=== PATIENT | male | born 1940 | race Caucasian/White ===

== ENCOUNTER 2019-11-08 07:41 | Day surgery (SDC) | payer MEDICARE, OTHER ==
[2019-11-04 10:17] VITALS: BMI 32.3
[~2019-11-08 07:41] MED LIST: DEXAMETHASONE SOD PHOSPHATE 10 MG/ML 1 ML VIAL IV ONE; DEXAMETHASONE SOD PHOSPHATE 4 MG/ML 1 ML VIAL IV ONE; FAMOTIDINE 20 MG/2 ML VIAL IV ONE; HYDROmorphone 0.5 MG/0.5 ML SYRINGE IVP PRN; LACTATED RINGERS 1,000 ML IV SCH; LIDOCAINE 1% 20 ML VIAL (10MG/ML) FOR IV START INTRADERMA PRN; ONDANSETRON 4 MG/2 ML VIAL IVP ONE
[2019-11-08 08:54] LABS: Glucose,Whole Blood 169 mg/dL (75-99)
[2019-11-08] MEDS ORDERED: ONDANSETRON 4 MG/2 ML VIAL IVP ONE (09:03)
[2019-11-08] MEDS ORDERED: DEXAMETHASONE SOD PHOSPHATE 10 MG/ML 1 ML VIAL IV ONE (09:04)
[2019-11-08] MEDS ORDERED: ROCURONIUM BROMIDE 10 MG/ML 10 ML VIAL IV ONE (10:20)
[2019-11-08] MEDS ORDERED: SUCCINYLCHOLINE CHLORIDE 100 MG/5 ML SYR IV ONE (10:20)
[2019-11-08] MEDS ORDERED: LIDOCAINE 1% INJ 10MG/ML (20 ML MDV) ONE (10:20)
[2019-11-08] MEDS ORDERED: MIDAZOLAM 2 MG/2 ML VIAL ONE (10:20)
[2019-11-08] MEDS ORDERED: ePHEDrine SULFATE/0.9% NACL/PF 50 MG/5 ML SYRINGE IV ONE (10:20)
[2019-11-08] MEDS ORDERED: PROPOFOL 10 MG/ML 20 ML VIAL IV ONE (10:20)
[2019-11-08] MEDS ORDERED: fentaNYL (PF) 50 MCG/ML 2 ML AMP ONE (10:20)
[2019-11-08] MEDS ORDERED: LIDOCAINE 1%-EPI 1:100,000 20 ML VIAL SQ ONE ×3 (10:43)
[2019-11-08] MEDS ORDERED: BACITRACIN 500 UNIT/GM OINT 28.4 GM TUBE TOPICAL ONE (11:03)
[2019-11-08] MEDS ORDERED: LACTATED RINGERS 1,000 ML IV ONE (11:49)
--- NOTE | 2019-11-08 11:54 | P.OP ---
Date of Procedure: 11/08/19 Preoperative Diagnosis: Right ear lesion Right nasal alar skin lesion Left holiness skin lesion 2 Postoperative Diagnosis: Same Procedure(s) Performed: Wedge excision right ear lesion with complex closure 6.3 cm Excision right nasal alar skin lesion 1.4 cm x 1.4 cm Full-thickness skin graft reconstruction right nasal alar skin defect 1.4 x 1.4 cm Excision left holiness skin lesion 2.6 cm x 1.3 cm with layered closure Excision left holiness skin lesion 2.1 cm x 1.2 cm with layered closure Anesthesia: ELIZAA Surgeon: Shreyas Vang Estimated Blood Loss (ml): 5 Pathology: other (Right ear skin lesion, right nasal alar skin lesion, left temporal skin lesion 2) Condition: stable Disposition: PACU Indications for Procedure: This is 79-year-old white male with multiple skin lesions that have developed. He has history of cutaneous malignancies previously Operative Findings: Right posterior auricle skin lesion, right nasal alar skin lesion and two left holiness skin lesions- these are all suspicious for cutaneous malignancies-raised erythematous and irregular Description of Procedure: Patient brought in the operative suite and placed in a supine position. The patient underwent induction of general anesthesia with oral endotracheal intubation without difficulty. The patient was prepped and draped in usual aseptic fashion. 1% lidocaine with 1-1000 epinephrine was infused subcutaneously at all sites as well as the right supraclavicular area for full- thickness skin graft harvest. The right nasal alar skin lesion was excised grossly entirely down to the perichondrium and hemostasis was gained with electrocautery. The full-thickness skin graft was then harvested in elliptical fashion from the right supraclavicular area in elliptical fashion defatted. This was then sutured circumferentially to suture the graft with 5-0 Vicryl suture left long and were then tied down to bolster dressing. Bolster dressing was cottonball impregnated with bacitracin ointment covered by Adaptic. The graft donor site was then undermined widely and hemostasis was gained with electrocautery. Wound was closed with inverted interrupted 4-0 Vicryl suture in the subcutaneous layer and cutaneous layers closed with running locking 4-0 Prolene suture. Bacitracin ointment sterile dressing were placed. The right ear lesion was then excised grossly entirely utilizing a wedge excision technique and hemostasis was gained with electrocautery. Complex closure was then accomplished utilizing rotation of the cut edges including the cartilage into the defect and utilizing 4-0 Vicryl suture and the cartilage 5-0 Vicryl in the subcutaneous layers and running locking 5-0 Prolene suture in the subcutaneous layer. Bacitracin ointment and a sterile dressing were placed. The left holiness lesions were then excised and closed separately but in the same fashion in elliptical fashion down to the subcutaneous fat layer grossly entirely and the edges of the wound are undermined hemostasis gained electrocautery and the wounds closed in layered closure technique with inverted interrupted 5-0 Vicryl suture and subcutaneous layer and cutaneous layer was closed with running locking 5-0 Prolene suture and bacitracin ointment and sterile dressings were placed. The patient was then allowed to emerge from general anesthesia having tolerated procedure well was extended the operating suite and transferred postoperative recovery area in size condition. Frozen section was due to the size of the lesions suture. Will await final pathology.
[2019-11-08 12:01] VITALS: TEMP 97
[2019-11-08 14:48] VITALS: BP 156/71; PULSE 63; RESP 18
== END 2019-11-08 14:34 | disposition home or self-care (01) ==
LOC: OR 07:41
PROVIDERS: ATTEND Otolaryngology
DX: C44.212 Basal cell carcinoma of skin of right ear and external auricular canal (principal); C44.311 Basal cell carcinoma of skin of nose; C44.319 Basal cell carcinoma of skin of other parts of face; I10 Essential (primary) hypertension; E11.65 Type 2 diabetes mellitus with hyperglycemia; M19.90 Unspecified osteoarthritis, unspecified site; J40 Bronchitis, not specified as acute or chronic; K21.9 Gastro-esophageal reflux disease without esophagitis; Z95.0 Presence of cardiac pacemaker; Z79.84 Long term (current) use of oral hypoglycemic drugs; Z79.899 Other long term (current) drug therapy; Z90.49 Acquired absence of other specified parts of digestive tract; Z98.1 Arthrodesis status; Z88.2 Allergy status to sulfonamides; Z91.018 Allergy to other foods; Z91.048 Other nonmedicinal substance allergy status; Z80.0 Family history of malignant neoplasm of digestive organs; Z82.49 Family history of ischemic heart disease and other diseases of the circulatory system; Z82.61 Family history of arthritis; Z80.42 Family history of malignant neoplasm of prostate; Z83.518 Family history of other specified eye disorder; Z87.891 Personal history of nicotine dependence
CPT/HCPCS: 88305; 11642; 15260; 11643; 12052; 11646; 13152; J2250; J1100; J2405; J0690; J2001; J3010; J0330; J2704

== ENCOUNTER 2020-08-02 09:00 | Day surgery (SDC) | payer MEDICARE, OTHER ==
[~2020-08-02 09:00] MED LIST changes: -DEXAMETHASONE SOD PHOSPHATE 10 MG/ML 1 ML VIAL IV ONE; -DEXAMETHASONE SOD PHOSPHATE 4 MG/ML 1 ML VIAL IV ONE; -FAMOTIDINE 20 MG/2 ML VIAL IV ONE; -LIDOCAINE 1% 20 ML VIAL (10MG/ML) FOR IV START INTRADERMA PRN; -ONDANSETRON 4 MG/2 ML VIAL IVP ONE; +ONDANSETRON 4 MG/2 ML VIAL IVP PRN; +fentaNYL (PF) 50 MCG/ML 2 ML AMP IV PRN
[2020-08-02] MEDS ORDERED: ONDANSETRON 4 MG/2 ML VIAL ONE (09:33)
[2020-08-02 09:52] VITALS: PULSE 60
[2020-08-02 09:52] LABS: Glucose,Whole Blood 152 mg/dL (75-99)
[2020-08-02] MEDS ORDERED: LIDOCAINE 1% (10MG/ML) FOR IV START INTRADERMA ONE (09:52)
[2020-08-02] MEDS ORDERED: PROPOFOL 10 MG/ML 20 ML VIAL IV ONE (11:35)
[2020-08-02] MEDS ORDERED: MIDAZOLAM 2 MG/2 ML VIAL ONE (11:35)
[2020-08-02] MEDS ORDERED: SUCCINYLCHOLINE CHLORIDE 100 MG/5 ML SYR IV ONE (11:35)
[2020-08-02] MEDS ORDERED: fentaNYL (PF) 50 MCG/ML 2 ML AMP ONE (11:35)
[2020-08-02] MEDS ORDERED: LIDOCAINE 1% INJ 10MG/ML (20 ML MDV) ONE (11:35)
[2020-08-02] MEDS ORDERED: LIDOCAINE 1%-EPI 1:100,000 20 ML VIAL SQ ONE ×2 (11:50)
[2020-08-02] MEDS ORDERED: LACTATED RINGERS 1,000 ML IV ONE (11:59)
[2020-08-02] MEDS ORDERED: BACITRACIN ZINC 500 UNIT/GM OINT 28.4 GM TUBE TOPICAL ONE (12:05)
--- NOTE | 2020-08-02 13:10 | P.PCN ---
Date of Procedure: 08/02/20 Preoperative Diagnosis: Left ear skin lesion Left medial brow skin lesion Right forearm skin lesion superior Right forearm skin lesion inferior Postoperative Diagnosis: Same Procedure(s) Performed: Excision ear lesion left 2.1 x 1.8 cm Reconstruction of left ear defect 2.1 x 1.8 cm with full-thickness skin graft Excision left medial brow lesion 1.8 cm with layered closure Excision right forearm skin lesion 1.5 cm with layered closure Excision right forearm skin lesion 1.7 cm with layered closure Anesthesia: ELIZAA Surgeon: Shreyas Vang Estimated Blood Loss (ml): 3 Pathology: other (Left ear, left medial brow, right forearm 2 skin lesions) Condition: stable Disposition: PACU Indications for Procedure: This is a 79-year-old white male with 4 separate slowly enlarging skin lesion enlarging on the left ear. Operative Findings: Pearly appearing skin lesion posterior anton bowl, keratotic irregular white skin lesion left medial brow, roughened and keratotic lesions right forearm 2 Description of Procedure: Patient was brought in the operative suite and placed in a supine position. Patient underwent induction of general anesthesia with oral endotracheal intubation without difficulty. The patient was prepped and draped in usual aseptic fashion. 1% lidocaine with 1 [id number] epinephrine was infused at all 4 separate lesions. The left ear lesion was excised from the surrounding tissue grossly entirely including the underlying cartilage for the margin. Hemostasis gained with electrocautery. A full-thickness skin graft was then harvested from the left supraclavicular area in elliptical fashion and was defatted. The defect was closed after wide undermining and good hemostasis was noted with inverted interrupted 4-0 Vicryl suture and skin closed with running locking 4-0 Prolene suture. Bacitracin ointment sterile dressing were placed. The skin graft was then placed to fill the defect at the appropriate size and shape and was sutured circumferentially with simple interrupted 5-0 Vicryl sutures left l alton. This was tied over a bolster of Adaptic covering cotton impregnated with bacitracin ointment. The left medial brow lesion was then excised in elliptical fashion in the direction of the rectus skin tension lines and the subcutaneous fat layer. Edges of the wound undermined hemostasis gained with electrocautery and the wound was closed with subcutaneous layer with inverted interrupted 5-0 chromic suture skin closed with running locking 5-0 Prolene suture. Bacitracin ointment and sterile dressings were placed. The right forearm skin lesions were then excised individually with elliptical excisions undermining of the skin and hemostasis gained with electrocautery. The wounds there were then closed with inverted interrupted 5-0 chromic suture skin closed with running locking 5-0 Prolene suture. Bacitracin ointment sterile dressings were placed. Each of these lesions were excised and closed separately prior to proceeding with the next. Patient was then allowed to emerge from general anesthesia having tolerated procedure well was extubated in the operating suite and transferred to postop recovery area in satisfactory condition.
[2020-08-02 13:25] VITALS: TEMP 97.5
[2020-08-02 13:31] LABS: Glucose,Whole Blood 184 mg/dL (75-99)
[2020-08-02 14:05] VITALS: RESP 16
[2020-08-02 14:37] VITALS: BP 136/74
[2020-08-02] MEDS ORDERED: HYDROcodone/APAP 5-325MG 1 EACH TAB ONE (14:41)
[2020-08-02] MEDS ORDERED: HYDROcodone/APAP 5-325MG 1 EACH TAB PO ONE (14:42)
== END 2020-08-02 16:23 | disposition home or self-care (01) ==
LOC: OR 09:00
PROVIDERS: ATTEND Otolaryngology
DX: C44.319 Basal cell carcinoma of skin of other parts of face (principal); C44.219 Basal cell carcinoma of skin of left ear and external auricular canal; L57.0 Actinic keratosis; B07.9 Viral wart, unspecified; E78.5 Hyperlipidemia, unspecified; I10 Essential (primary) hypertension; M19.90 Unspecified osteoarthritis, unspecified site; E11.65 Type 2 diabetes mellitus with hyperglycemia; K21.9 Gastro-esophageal reflux disease without esophagitis; Z88.2 Allergy status to sulfonamides; Z79.82 Long term (current) use of aspirin; Z79.4 Long term (current) use of insulin; Z79.52 Long term (current) use of systemic steroids; Z79.02 Long term (current) use of antithrombotics/antiplatelets; Z79.899 Other long term (current) drug therapy; Z90.49 Acquired absence of other specified parts of digestive tract; Z98.41 Cataract extraction status, right eye; Z98.42 Cataract extraction status, left eye; Z95.0 Presence of cardiac pacemaker; Z91.09 Other allergy status, other than to drugs and biological substances; Z80.0 Family history of malignant neoplasm of digestive organs; Z80.42 Family history of malignant neoplasm of prostate; Z82.61 Family history of arthritis; Z82.49 Family history of ischemic heart disease and other diseases of the circulatory system; Z83.518 Family history of other specified eye disorder; Z87.891 Personal history of nicotine dependence
CPT/HCPCS: 88305; 11402 ×2; 11642; 12051; 11643; 15260; 12032; J2250; J2405; J0690; J2001; J3010; J0330; J2704

== ENCOUNTER 2023-07-30 10:23 | Day surgery (SDC) | payer MEDICARE, OTHER ==
[2023-07-28 10:26] VITALS: BMI 28.9
[~2023-07-30 10:23] MED LIST changes: +DEXAMETHASONE SOD PHOSPHATE 4 MG/ML 1 ML VIAL IV ONE; +FAMOTIDINE 20 MG/2 ML VIAL IV PRN; +LIDOCAINE 1% (10MG/ML) FOR IV START INTRADERMA PRN; +MIDAZOLAM 2 MG/2 ML VIAL IV PRN; +ONDANSETRON 4 MG/2 ML VIAL IVP ONE; -ONDANSETRON 4 MG/2 ML VIAL IVP PRN; -fentaNYL (PF) 50 MCG/ML 2 ML AMP IV PRN
[2023-07-30] MEDS ORDERED: fentaNYL (PF) 50 MCG/ML 2 ML AMP ONE (11:07)
[2023-07-30] MEDS ORDERED: PROPOFOL 10 MG/ML 20 ML VIAL IV ONE (11:07)
[2023-07-30] MEDS ORDERED: ePHEDrine 50 MG/ML 1 ML VIAL ONE (11:07)
[2023-07-30] MEDS ORDERED: LIDOCAINE 1% INJ 10MG/ML (20 ML MDV) ONE (11:07)
[2023-07-30 11:17] LABS: Glucose,Whole Blood 156 mg/dL (70-110)
[2023-07-30] MEDS ORDERED: LIDOCAINE 1%-EPI 1:100,000 50 ML VIAL SQ ONE ×2 (11:26)
[2023-07-30] MEDS ORDERED: BACITRACIN ZINC 500 UNIT/GM OINT 28.4 GM TUBE TOPICAL ONE (11:47)
--- NOTE | 2023-07-30 12:04 | P.OP ---
Date of Procedure: 07/30/23 Preoperative Diagnosis: Right ear skin lesion Postoperative Diagnosis: Same Procedure(s) Performed: Wedge excision right ear lesion with complex closure- 5.3 cm Anesthesia: ELIZAA Surgeon: Shreyas Vang Estimated Blood Loss (ml): 3 Pathology: other (Right ear skin lesion) Condition: stable Disposition: PACU Indications for Procedure: This 82-year-old white male with a nonhealing slowly enlarging right ear lesion Operative Findings: Nodular but excoriated right lateral ear lesion approximate 12 x 13 mm Description of Procedure: Patient was brought in the operative suite and placed in a supine position. Patient underwent induction of general anesthesia with oral endotracheal intubation without difficulty. This was an LMA. The patient was prepped and draped in usual aseptic fashion. 1% lidocaine with 1-1000 epinephrine was infused subcutaneously and field block fashion. This was left to work for 7 minutes vasoconstrictive effect. The lesion was then excised with wedge excision technique through and through to remove the lesion grossly entirely. This was marked for permanent section. Frozen sections were deferred due to trying to decrease the time on table with his age and medical status. Hemostasis was gained with electrocautery. The wound was then closed with rotational and advancement of tissue into the area with wide undermining. This required complex closure as the cartilage was reapproximated with oral Vicryl suture subcutaneous deep and superficial layers were closed with inverted interrupted 5-0 Vicryl suture and skin closed with running locking and simple interrupted oral point suture. The wound was dressed with bacitracin ointment and sterile dressing. The patient was allowed to emerge from general anesthesia having tolerated procedure well was extubated in the operating suite and transferred postoperative recovery area in satisfactory condition.
[2023-07-30 12:26] VITALS: PULSE 60; RESP 16; TEMP 97
[2023-07-30 12:48] VITALS: BP 148/67
== END 2023-07-30 13:43 | disposition home or self-care (01) ==
LOC: OR 10:23
PROVIDERS: ATTEND Otolaryngology
DX: C44.212 Basal cell carcinoma of skin of right ear and external auricular canal (principal); E78.5 Hyperlipidemia, unspecified; I12.9 Hypertensive chronic kidney disease with stage 1 through stage 4 chronic kidney disease, or unspecified chronic kidney disease; E11.22 Type 2 diabetes mellitus with diabetic chronic kidney disease; N18.9 Chronic kidney disease, unspecified; K21.9 Gastro-esophageal reflux disease without esophagitis; Z87.891 Personal history of nicotine dependence; Z95.0 Presence of cardiac pacemaker; Z95.5 Presence of coronary angioplasty implant and graft; Z85.46 Personal history of malignant neoplasm of prostate; Z79.82 Long term (current) use of aspirin; Z79.899 Other long term (current) drug therapy
CPT/HCPCS: 88305; 69110; J0690; J2001; J3010; J2704

== ENCOUNTER 2024-04-14 11:43 | Day surgery (SDC) | payer MEDICARE, OTHER ==
[~2024-04-14 11:43] MED LIST changes: -DEXAMETHASONE SOD PHOSPHATE 4 MG/ML 1 ML VIAL IV ONE; -LACTATED RINGERS 1,000 ML IV SCH; -LIDOCAINE 1% (10MG/ML) FOR IV START INTRADERMA PRN; -MIDAZOLAM 2 MG/2 ML VIAL IV PRN; -ONDANSETRON 4 MG/2 ML VIAL IVP ONE
[2024-04-14 12:23] LABS: Glucose,Whole Blood 142 mg/dL (70-110)
[2024-04-14] MEDS: ONDANSETRON 4 MG/2 ML VIAL IVP STA (12:32)
[2024-04-14] MEDS: LACTATED RINGERS 1,000 ML IV SCH (12:32)
[2024-04-14] MEDS: DEXAMETHASONE SOD PHOSPHATE 4 MG/ML 1 ML VIAL IVP STA (12:33)
[2024-04-14] MEDS: IV FLUID CONTINUATION 1,000 ML IV ONE (12:34)
[2024-04-14 12:51] LABS: Basophils # (A) 0.1 k/uL (0-0.2); Basophils % (A) 1 %; Eosinophils # (A) 0.3 k/uL (0-0.7); Eosinophils % (A) 2 %; HCT 39.5 % (39.0-53.0); Lymphocytes # (A) 1.1 k/uL (1.0-4.8); Lymphocytes % (A) 10 %; MCH 29.7 pg (25.0-35.0); MCV 90.2 fL (80.0-100.0); Mean Platelet Volume 9.6; Monocytes # (A) 0.8 k/uL (0-1.0); Monocytes % (A) 8 %; Neutrophils # (A) 8.3 k/uL (1.3-7.7); Neutrophils % (A) 78 %; Platelet Count 142 k/uL (150-450); RBC 4.38 m/uL (4.30-5.90); RDW 12.7 % (11.5-15.5); WBC 10.8 k/uL (3.8-10.6)
[2024-04-14 13:04] LABS: ALT 44 U/L (4-49); AST 48 U/L (17-59); African American GFR (CKD) 52 (>60 ml/min/1.73 sqM); Albumin 4.1 g/dL (3.5-5.0); Alkaline Phosphatase 80 U/L (38-126); Anion Gap 7 mmol/L; Blood Urea Nitrogen 26 mg/dL (9-20); Calcium 9.4 mg/dL (8.4-10.2); Carbon Dioxide 26 mmol/L (22-30); Chloride 104 mmol/L (98-107); Glucose 149 mg/dL (74-99); Non-African American GFR(CKD) 45 (>60 ml/min/1.73 sqM); Potassium 4.3 mmol/L (3.5-5.1); Sodium 137 mmol/L (137-145); Total Bilirubin 0.7 mg/dL (0.2-1.3); Total Protein 6.5 g/dL (6.3-8.2)
[2024-04-14] MEDS ORDERED: LIDOCAINE 1% INJ 10MG/ML (20 ML MDV) ONE (13:47)
[2024-04-14] MEDS ORDERED: PHENYLEPHRINE-0.9% NACL SYG 1,000 MCG/10 ML SYRINGE ONE (13:47)
[2024-04-14] MEDS ORDERED: SUCCINYLCHOLINE CHLORIDE 200 MG/10 ML VIAL IV ONE (13:47)
[2024-04-14] MEDS ORDERED: PROPOFOL 10 MG/ML 20 ML VIAL IV ONE (13:47)
[2024-04-14] MEDS ORDERED: fentaNYL (PF) 50 MCG/ML 2 ML AMP ONE (13:47)
[2024-04-14] MEDS: LIDOCAINE 1%-EPI 1:100,000 20 ML VIAL SQ ONE ×2 (14:08)
[2024-04-14] MEDS: BACITRACIN ZINC 500 UNIT/GM OINT 28.4 GM TUBE TOPICAL ONE (14:50)
--- NOTE | 2024-04-14 14:58 | P.OP ---
Date of Procedure: 04/14/24 Preoperative Diagnosis: left cheondoism basal cell carcinoma superior Left cheondoism skin lesion posterior Postoperative Diagnosis: same Procedure(s) Performed: excision left superior temporal basal cell carcinoma 3.5 x 2.7 cm Local flap reconstruction left superior temporal defect primary defect 3.5 x 2.7 cm and secondary defect 3.7 x 3 cm excision left posterior temporal skin lesion complex closure 3.4 cm Anesthesia: ELIZAA Surgeon: Shreyas Vang Estimated Blood Loss (ml): 3 Pathology: other (left superior and left posterior temporal skin lesion) Condition: stable Disposition: PACU Indications for Procedure: this is an 83-year-old white male who has developed 2 left temporal skin lesions. The larger more superior lesion was biopsied and showed a basal cell carcinoma Operative Findings: approximate 3 x 2.1 cm left superior cheondoism skin lesion, 9 mm raised rounded skin lesion left posterior temporal Description of Procedure: patient brought in the operative suite and placed in a supine position. Patient underwent induction of general anesthesia with oral endotracheal intubation without difficulty. Patient prepped and draped in usual aseptic fashion. 1% lidocaine with 1 1000 epinephrine was infused subcutaneously and field block fashion. This was left to work for 7 minutes vasoconstrictive effect. The left posterior temporal skin lesion was excised grossly entirely down to the subcutaneous fat layer. There was wide undermining performed. Due to the location and size of this defect complex closure was necessary with wide undermining removal of additional tissue to prevent dog earing and also rotation of tissue into the defect in order to prevent deformity at the hairline. The deep subcutaneous layer was then closed with inverted interrupted 5-0 Vicryl suture subcutaneous layer closed with inverted interrupted 6-0 Vicryl suture and skin closed with running locking 5-0 Prolene suture. The larger left superior temporal lesion was then excised down to the subcutaneous fat layer grossly entirely. This encompassed to lesions. Due to the size of this defect a local flap was necessary which was rotated from medially into the defect in a rhomboid type flap shape. This was raised in the subcutaneous fat layer rotated into position and the primary and secondary defect was then closed with inverted interrupted 5-0 Vicryl suture and subcutaneous layer and running locking and simple interrupted 5-0 Prolene sutures in the skin. Bacitracin ointment and sterile dressing was placed. The patient was then allowed to emerge from general anesthesia having tolerated procedure well was extubated in the operating suite and transferred to postop recovery area in satisfactory condition.
[2024-04-14 15:06] VITALS: TEMP 97
[2024-04-14 15:10] LABS: Glucose,Whole Blood 151 mg/dL (70-110)
[2024-04-14 15:47] VITALS: RESP 16
[2024-04-14 16:33] VITALS: BP 136/68; PULSE 62
== END 2024-04-14 16:55 | disposition home or self-care (01) ==
LOC: OR 11:43
PROVIDERS: ATTEND Otolaryngology
DX: C44.319 Basal cell carcinoma of skin of other parts of face (principal); I10 Essential (primary) hypertension; E78.5 Hyperlipidemia, unspecified; Z95.0 Presence of cardiac pacemaker; E11.9 Type 2 diabetes mellitus without complications; H91.90 Unspecified hearing loss, unspecified ear; M81.0 Age-related osteoporosis without current pathological fracture; K21.9 Gastro-esophageal reflux disease without esophagitis; Z79.84 Long term (current) use of oral hypoglycemic drugs; Z79.82 Long term (current) use of aspirin; Z79.1 Long term (current) use of non-steroidal anti-inflammatories (NSAID); Z88.2 Allergy status to sulfonamides; Z91.048 Other nonmedicinal substance allergy status
CPT/HCPCS: 21012; 88305; 80053; 85025; J0330; J1100; J0690; J2405; J2001; J3010; J2704; J2371

== ENCOUNTER 2024-09-15 11:54 | Day surgery (SDC) | payer MEDICARE, OTHER ==
[~2024-09-15 11:54] MED LIST changes: -FAMOTIDINE 20 MG/2 ML VIAL IV PRN
[2024-09-15 12:16] VITALS: TEMP 98.2
[2024-09-15] MEDS: LACTATED RINGERS 1,000 ML IV SCH (12:29)
[2024-09-15] MEDS: ONDANSETRON 4 MG/2 ML VIAL IVP ONE (12:30)
[2024-09-15] MEDS: FAMOTIDINE 20 MG/2 ML VIAL IV PRN (12:30)
[2024-09-15] MEDS ORDERED: PHENYLEPHRINE-0.9% NACL SYG 1,000 MCG/10 ML SYRINGE ONE (12:34)
[2024-09-15] MEDS ORDERED: PROPOFOL 10 MG/ML 20 ML VIAL IV ONE (12:34)
[2024-09-15] MEDS ORDERED: LIDOCAINE 1% INJ 10MG/ML (20 ML MDV) ONE (12:34)
[2024-09-15] MEDS ORDERED: fentaNYL (PF) 50 MCG/ML 2 ML AMP ONE (12:34)
[2024-09-15] MEDS: DEXAMETHASONE SOD PHOSPHATE 4 MG/ML 1 ML VIAL IV ONE (12:36)
[2024-09-15 12:37] LABS: Glucose,Whole Blood 149 mg/dL (70-110)
[2024-09-15] MEDS: IV FLUID CONTINUATION 1,000 ML IV ONE (12:37)
[2024-09-15] MEDS: LIDOCAINE 1%-EPI 1:100,000 20 ML VIAL SQ ONE ×2 (12:56)
[2024-09-15] MEDS: BACITRACIN ZINC 500 UNIT/GM OINT 28.4 GM TUBE TOPICAL ONE (13:17)
--- NOTE | 2024-09-15 13:29 | P.OP ---
Date of Procedure: 09/15/24 Preoperative Diagnosis: right forehead skin lesion Postoperative Diagnosis: same Procedure(s) Performed: excision right forehead skin lesion with complex closure 5.6 cm Anesthesia: ELIZAA Surgeon: Shreyas Vang Estimated Blood Loss (ml): 5 Pathology: other (right forehead) Condition: stable Disposition: PACU Indications for Procedure: 84-year-old white male with slowly enlarging right forehead skin lesion Operative Findings: nodular right forehead skin lesion with rolled raised edges and depressed ulcerative Center Description of Procedure: the patient was brought in the operative suite and placed in a supine position. Patient underwent induction of general anesthesia with mask airway intubation without difficulty. The patient was prepped and draped in usual aseptic fashion. An elliptical incision was fashioned around the lesion in the direction of the relaxed skin tension lines. This was carried sharply through the skin and subcutaneous tissue down to the muscular layer. The lesion was excised from the surrounding tissue grossly entirely. The edges of the wound are undermined and hemostasis gained with electrocautery. Due to the location and size of this lesion this required complex closure with advancement of tissue into the surrounding defect to close. Closure was accomplished in the subcutaneous layer with inverted interrupted 4-0 Vicryl suture subcutaneous layer with inverted interrupted 4-0 Vicryl suture and skin with running locking 4-0 Prolene suture. Bacitracin ointment and sterile dressing were placed.the patient was then allowed to emerge from general anesthesia having tolerated pro cedure well was extubated in the operating suite and transferred to postop recovery area in satisfactory condition.
[2024-09-15 14:43] VITALS: BP 161/69; PULSE 60; RESP 14
== END 2024-09-15 15:00 | disposition home or self-care (01) ==
LOC: OR 11:54
PROVIDERS: ATTEND Otolaryngology
DX: C44.319 Basal cell carcinoma of skin of other parts of face (principal); I25.2 Old myocardial infarction; I10 Essential (primary) hypertension; E78.5 Hyperlipidemia, unspecified; K21.9 Gastro-esophageal reflux disease without esophagitis; N18.30 Chronic kidney disease, stage 3 unspecified; E11.40 Type 2 diabetes mellitus with diabetic neuropathy, unspecified; M19.90 Unspecified osteoarthritis, unspecified site; H91.90 Unspecified hearing loss, unspecified ear; Z95.0 Presence of cardiac pacemaker; Z88.2 Allergy status to sulfonamides; Z79.1 Long term (current) use of non-steroidal anti-inflammatories (NSAID); Z79.01 Long term (current) use of anticoagulants; Z79.899 Other long term (current) drug therapy
CPT/HCPCS: 13101; 88305; 11646; J1100; J0690; J2405; J2003; J3010; J3490; J2704; J2371